=== PATIENT | female | born 1965 | race Caucasian/White ===

== ENCOUNTER 2020-09-13 05:52 | Observation (INO) | payer OTHER ==
[2020-09-10 11:53] LABS: BASOPHILS # (AUTO) 0.1 (0.0-0.1); BASOPHILS % 0.8 % (0.0-1.0); EOSINOPHILS # (AUTO) 0.1 (0.0-0.4); EOSINOPHILS % 1.8 % (0.0-6.0); HEMATOCRIT 38.4 % (34.2-44.1); HEMOGLOBIN 12.7 g/dL (12.0-16.0); LYMPHOCYTES # (AUTO) 2.3 (1.0-3.2); LYMPHOCYTES % 35.4 % (18.0-39.1); MEAN CORPUSCULAR HEMOGLOBIN 30.7 pg (28-32); MEAN CORPUSCULAR HGB CONC 33.1 g/dL (31-35); MEAN CORPUSCULAR VOLUME 92.8 fL (81-99); MONOCYTES # (AUTO) 0.6 (0.2-0.8); NEUTROPHILS # (AUTO) 3.4 (2.1-6.9); NEUTROPHILS % 52.8 % (38.7-80.0); PLATELET COUNT 308 x10e3/uL (140-360); RED BLOOD COUNT 4.14 x10e6/uL (3.6-5.1); RED CELL DISTRIBUTION WIDTH 12.7 % (11.7-14.4)
[2020-09-10 12:14] LABS: INR 1.02
[2020-09-10 12:15] LABS: PARTIAL THROMBOPLASTIN TIME 25.2 seconds (23.8-35.5)
[2020-09-10 12:19] LABS: ANION GAP 12.1 mmol/L (8-16); BLOOD UREA NITROGEN 22 mg/dL (7-26); BUN/CREATININE RATIO 29 (6-25); CALCIUM 9.2 mg/dL (8.4-10.2); CARBON DIOXIDE 27 mmol/L (22-29); CHLORIDE 104 mmol/L (98-107); CREATININE, SERUM 0.77 mg/dL (0.57-1.11); EST GLOMERULAR FILTRATION RATE > 60 ML/MIN (60-); GLUCOSE 99 mg/dL (74-118); POTASSIUM 4.1 mmol/L (3.5-5.1); SODIUM 139 mmol/L (136-145)
[~2020-09-13] VITALS: Ht 170.2 cm; Wt 74.8 kg
[~2020-09-13 05:52] MED LIST: GABAPENTIN600 MG PO; IBUPROFEN400 MG PO
[2020-09-13] MEDS ORDERED: CEFAZOLIN SOD 1 GM/NS 50ML 100 ML IV ONE (06:23)
[2020-09-13] MEDS ORDERED: BUPIVACAINE 0.5%/EPI 30 ML SDV INJ ONE (06:42)
[2020-09-13] MEDS ORDERED: VANCOMYCIN HCL 1 GM VIAL ONE (06:42)
[2020-09-13] MEDS ORDERED: THROMBIN FOR SOLN 5,000 UNIT VIAL ONE (06:42)
[2020-09-13] MEDS ORDERED: ACETAMINOPHEN 1000 MG/100 ML 100 ML IV ONE (07:31)
[2020-09-13] MEDS ORDERED: LIDOCAINE HCL (LTA) 4 ML SOLN ONE (07:31)
[2020-09-13] MEDS ORDERED: IBUPROFEN 800MG/ 200ML 200 ML IV ONE (07:31)
[2020-09-13] MEDS ORDERED: ONDANSETRON HCL INJ 2MG/ML 2ML 2 MG/ML VIAL IV PRN (09:15)
[2020-09-13] MEDS ORDERED: HYDROMORPHONE 2MG/ML 2 MG/ML ML IV PRN (09:15)
[2020-09-13] MEDS ORDERED: PROMETHAZINE HCL (IM) 25 MG/ML VIAL IM PRN (09:15)
[2020-09-13] MEDS ORDERED: MAGNESIUM/ALUMINUM/SIMETHICONE 30 ML UDC PO PRN (09:15)
[2020-09-13] MEDS ORDERED: MORPHINE SULFATE 5 MG/ML VIAL IM PRN (09:15)
[2020-09-13] MEDS ORDERED: LACTATED RINGER'S 1,000 ML IV SCH (09:15)
[2020-09-13] MEDS ORDERED: ACETAMINOPHEN 325 MG TAB PO PRN (09:15)
[2020-09-13] MEDS ORDERED: FENTANYL CITRATE/PF 100MCG/2 ML INJ ONE ×2 (09:31→17:12)
[2020-09-13] MEDS ORDERED: MORPHINE SULFATE INJ 4 MG/ML INJ 1ML ONE (10:13)
[2020-09-13 11:05] VITALS: BP 108/52
[2020-09-13] MEDS: OXYCODONE/ACETAMINOPHEN 5-325 1 EACH TABLET PO PRN ×3 (11:12→21:13)
[2020-09-13] MEDS: CARISOPRODOL 350 MG TAB PO PRN ×3 (11:12→21:13)
[2020-09-13 11:33] VITALS: BP 108/52
[2020-09-13] MEDS: CEFAZOLIN SOD 1 GM/NS 50ML 50 ML IV SCH (15:54)
[2020-09-13 15:55] VITALS: BP 115/64
[2020-09-13] MEDS ORDERED: MIDAZOLAM HCL 2 MG/2 ML VIAL ONE (17:12)
[2020-09-13] MEDS ORDERED: SEVOFLURANE INHAL SOLN 250 ML PEN BTL ONE (17:12)
[2020-09-13] MEDS ORDERED: GLYCOPYRROLATE INJ 0.2 MG/ML VIAL ONE (17:12)
[2020-09-13] MEDS ORDERED: PROPOFOL IV EMULSION 10 MG/ML 20 ML VIAL ONE (17:12)
[2020-09-13] MEDS ORDERED: NEOSTIGMINE 1 MG/ML 10ML VIAL ONE (17:12)
[2020-09-13] MEDS ORDERED: LIDOCAINE HCL 2% JELLY 5 ML TUBE ONE (17:12)
[2020-09-13] MEDS ORDERED: DEXAMETHASONE SOD PHOS INJ 4 MG/ML VIAL ONE (17:12)
[2020-09-13] MEDS ORDERED: LIDOCAINE HCL 2% LOCAL INJ 5 ML SDV VIAL INJ ONE (17:12)
[2020-09-13] MEDS ORDERED: ONDANSETRON HCL INJ 2MG/ML 2ML 2 MG/ML VIAL ONE (17:12)
[2020-09-13 19:55] VITALS: BP 103/59
[2020-09-13] MEDS ORDERED: ZOLPIDEM TARTRATE 5 MG TAB PO PRN (21:00)
[2020-09-13] MEDS ORDERED: GABAPENTIN 400 MG CAP PO SCH (21:00)
[2020-09-14 00:05] VITALS: BP 101/55
[2020-09-14] MEDS: CEFAZOLIN SOD 1 GM/NS 50ML 50 ML IV SCH ×2 (00:50→07:36)
[2020-09-14 04:15] VITALS: BP 100/52
[2020-09-14] MEDS: CARISOPRODOL 350 MG TAB PO PRN (04:21)
[2020-09-14 07:37] VITALS: BP 107/56
[2020-09-14] MEDS ORDERED: NORCO 7.5-3251 EACH PO (08:24)
== END 2020-09-14 09:53 | disposition home or self-care (01) ==
LOC: OR 05:52 → PACU V 09:14 → MED/SURG 10:45
PROVIDERS: ADMIT Neurological Surgery; ATTEND Neurological Surgery
DX: M50.022 Cervical disc disorder at C5-C6 level with myelopathy (principal); Z20.822 Contact with and (suspected) exposure to COVID-19; Z01.818 Encounter for other preprocedural examination
CPT/HCPCS: 20931; 22551; 22845; 36415; 71046; 72040; 77003; 80048; 85025; 85610; 85730; 86850; 86900; 88304; 88311; 93005; 99251; C1713 ×2; G0378 ×2; J0131; J0690 ×2; J1100; J2001 ×2; J2250; J2270; J2405; J2550; J2704; J2710; J3010; J3370; U0002